=== PATIENT | male | born 1990 | race Caucasian/White ===

== ENCOUNTER 2020-05-26 12:06 | Day surgery (SDC) | payer OTHER ==
[~2020-05-26] VITALS: Ht 175.3 cm; Wt 77.3 kg
[~2020-05-26 12:06] MED LIST: KETOROLAC 30 MG/ML 1ML VIAL IV SCH
[2020-05-26] MEDS ORDERED: NS 1,000 ML IV ONE (13:00)
[2020-05-26 13:13] LABS: BASO % 0.3 % (0.0-1.0); EOS # 0.1 10^3/uL (0.0-0.5); EOS % 0.8 % (0.0-3.0); HEMATOCRIT 44.2 % (42.0-52.0); LYMPH # 2.1 10^3/uL (1.5-5.0); LYMPH % 14.2 % (24.0-44.0); MEAN CORPUSCULAR HEMOGLOBIN 29.9 pg (27.0-33.0); MEAN CORPUSCULAR HGB CONC 33.9 g/dl (32.0-36.5); MONO # 1.4 10^3/uL (0.0-0.8); MONO % 9.2 % (0.0-5.0); NEUTROPHILS # 11.4 10^3/uL (1.5-8.5); PLATELET COUNT, AUTOMATED 250 10^3/uL (150-450); RED BLOOD COUNT 5.02 10^6/uL (4.30-6.10); WHITE BLOOD COUNT 15.1 10^3/uL (4.0-10.0)
[2020-05-26] MEDS ORDERED: ISOVUE-370 76% 100ML VIAL As Ordered ONE (13:29)
[2020-05-26 13:41] LABS: ALBUMIN 3.8 GM/DL (3.2-5.2); BILIRUBIN,DIRECT 0.2 MG/DL (0.0-0.2); BILIRUBIN,TOTAL 0.7 MG/DL (0.2-1.0); TOTAL PROTEIN 7.5 GM/DL (6.4-8.2)
--- NOTE | 2020-05-26 13:45 | REP ---
INDICATION: RLQ pain r/o appendicitis. COMPARISON: None TECHNIQUE: Axial contrast-enhanced images from the lung bases to the pubic symphysis using 100 cc Isovue 370 intravenous contrast material. Coronal and sagittal reformations obtained. This CT examination was performed using the following dose reduction techniques: Automated exposure control, adjustment of mA and/or kv according to the patient's size, and the use of iterative reconstruction technique. FINDINGS: The appendix is fluid-filled and significantly dilated to 22 mm along with a moderate to significant amount of right lower quadrant inflammatory changes including mesenteric stranding and small amount of free fluid. Secondary inflammatory changes to the terminal ileum and cecum are noted. Few scattered reactive right lower quadrant lymph nodes are also identified. No evidence for bowel obstruction, free air to suggest perforation, or drainable periappendiceal collection/abscess. Remainder of the small and large bowel is unremarkable. Liver, spleen, pancreas, gallbladder, bilateral adrenal glands and kidneys are normal. Further evaluation of the pelvis demonstrates normal bladder and age-appropriate prostate/seminal vesicles. Abdominal aorta and vasculature normal. Musculoskeletal structures are intact. Lung bases are clear. IMPRESSION: Acute appendicitis as described above. Moderate amount of surrounding inflammatory changes in the pelvis along with secondary inflammatory changes to the cecum and terminal ileum. No obvious bowel obstruction, perforation or drainable collection/abscess. <Electronically signed by Ministerio Grover > 05/26/20 2030
[2020-05-26] MEDS ORDERED: PIPERACILLIN/TAZOBACTAM SOD 3.375 GM in D5W MINI-BAG PLUS 50 ML IV ONE (14:00)
[2020-05-26] MEDS ORDERED: fentaNYL 100 MCG/2 ML INJECTION (J3010) As Ordered ONE ×2 (16:27→17:12)
[2020-05-26] MEDS ORDERED: MIDAZOLAM INJ 2MG/2ML VIAL (J2250 PER 1MG) As Ordered ONE (16:27)
[2020-05-26] MEDS ORDERED: ONDANSETRON 4MG/2ML VIAL As Ordered ONE (16:28)
[2020-05-26] MEDS ORDERED: LIDOCAINE 2% 100MG/5ML SDV (FOR ANES.) As Ordered ONE (16:28)
[2020-05-26] MEDS ORDERED: ROCURONIUM BROMIDE 50 MG/5 ML VIAL As Ordered ONE ×2 (16:28→17:24)
[2020-05-26] MEDS ORDERED: propofoL 200 MG/20 ML VIAL As Ordered ONE (16:28)
[2020-05-26] MEDS ORDERED: dexameTHASONE 4 MG/ML 1ML VIAL (J1100 PER 1MG) As Ordered ONE (16:28)
[2020-05-26] MEDS ORDERED: BUPIVACAINE HCL 0.25% 30ML VIAL As Ordered ONE (16:30)
[2020-05-26] MEDS ORDERED: LIDOCAINE 1% SDV 30ML VIAL As Ordered ONE (16:30)
--- NOTE | 2020-05-26 16:55 | HPEPDOC ---
General Surgery H&P Date of Admission May 26, 2020 Attending Physician: PHILLIP BLISS MD History and Physical CHIEF COMPLAINT: abdominal pain HISTORY OF PRESENT ILLNESS: Healthy 29 M with a 4 day hsitory of mid to right lower abdoinal pain that has worsened overnight. He denies nausea, vomiting, fevers, chills, diarrhea. No sick contacts or recent travel. In the ED he was found to have leukocytosis of 15,000 and evidence of moderate to markedly distended and inflamed appendix with reactive involvement of the cecum and terminal ileum. ALLERGIES: Please see below. HOME MEDICATIONS: Please see below. PAST MEDICAL HISTORY: 1.denies chronic medical complaints PAST SURGICAL HISTORY: 1. right inguinal hernia repair with mesh. PERSONAL/SOCIAL HISTORY: Denies smoking, alcohol use, or recreational drug use. REVIEW OF SYSTEMS: GENERAL: Denies chills, fatigue, fever, weight gain and weight loss. HEENT: Denies blurred vision and double vision. Denies ear symptoms. Denies hoarseness. NECK: Denies any neck pain. CARDIOVASCULAR: Denies chest pain and palpitations. MUSCULOSKELETAL: Denies arthralgias, back pain and thrombophlebitis. SKIN: Denies rash. NEUROLOGIC: Denies headache, stroke and transient ischemic attack. PSYCHIATRIC: Denies anxiety and depression. ENDOCRINE: Denies thyroid disease. HEMATOLOGY/ONCOLOGY: Denies any bleeding or clotting disorder. HEART: Denies any chest pains, palpitations, paroxysmal dyspnea, orthopnea. PULMONARY: Denies chronic cough, dyspnea and wheezing. GASTROINTESTINAL: See HPI. GENITOURINARY: Denies dysuria, frequency, hematuria and nocturia. ENDOCRINE: Denies polydipsia, polyphagia, polyuria, heat or cold intolerance. INFECTIOUS: Denies any recent upper respiratory tract infection, UTI, need for use of antibiotics. NUTRITION: Reports good appetite. PHYSICAL EXAMINATION: VITAL SIGNS: Please see below. GENERAL APPEARANCE: Patient relatively comfortable, mild discomfort on examination. Awake, alert, oriented. HEENT: Normocephalic, atraumatic. Narcissa palpebral conjunctivae. Anicteric sclerae. Lips moist. CHEST: No chest wall abnormalities. Normal respiratory motion/effort. NECK: Supple. No thyromegaly. No lymphadenopathies. LUNGS: Lung sounds are clear to auscultation bilaterally. No wheezing appreciated. HEART: No chest wall abnormalities. Heart rate and rhythm are regular with no murmurs. ABDOMEN: Minimally distended, slightly rounded abdomen, soft. Tender over right lower and suprapubic area with mild guarding EXTREMITIES: Extremities have no deformities. No edema identified. NEUROLOGICAL: Awake, alert and oriented ANCILLARIES: . LABORATORY DATA: Please see below. MICROBIOLOGY: Please see below. IMAGING: CT abdomen and pelvis IMPRESSION AND PLAN: Acute Appendicitis Clilnically does not look very ill, He does have four days of ongoing symptoms and significant inflammation of the appendix and nearby cecum and terminal ileum with the appendix enlarged up to 2 cms. Good chance of possibly perforated/necrotic/ischemic at this point. I believe he will still benefit from a laparoscopic appendectomy to shorten the course. There is a good possibility that he may need further IV antibiotics for a couple of days depending on how the surrounding tissues are and if it has perforated already or not. Patient is made aware of my suspicion. Vital Signs Vital Signs Date Time Temp Pulse Resp B/P (MAP) Pulse Ox O2 Delivery O2 Flow Rate FiO2 05/26/20 16:14 98.6 90 16 138/80 (99) 100 Room Air Laboratory Data Labs 24H Laboratory Tests 2 05/26/20 12:59: Immature Granulocyte % (Auto) 0.5, Neutrophils (%) (Auto) 75.0H, Lymphocytes (%) (Auto) 14.2L, Monocytes (%) (Auto) 9.2H, Eosinophils (%) (Auto) 0.8, Basophils (%) (Auto) 0.3, Neutrophils # (Auto) 11.4H, Lymphocytes # (Auto) 2.1, Monocytes # (Auto) 1.4H, Eosinophils # (Auto) 0.1, Basophils # (Auto) 0.0, Nucleated Red Blood Cells % (auto) 0.0, Urine Color YELLOW, Urine Appearance CLEAR, Urine pH 6.0, Urine Specific [place] 1.018, Urine Protein NEGATIVE, Urine Glucose (UA) NEGATIVE, Urine Ketones NEGATIVE, Urine Blood 1+H, Urine Nitrite NEGATIVE, Urine Bilirubin NEGATIVE, Urine Urobilinogen 0.2, Urine Leukocyte Esterase NEGATIVE, Urine WBC (Auto) 1, Urine RBC (Auto) 4H, Urine Hyaline Casts (Auto) 0, Urine Bacteria (Auto) NEGATIVE, Urine Squamous Epithelial Cells 0, Urine Mucus (Auto) SMALL, Urine Sperm (Auto) , Total Bilirubin 0.7, Direct Bilirubin 0.2, Aspartate Amino Transf (AST/SGOT) 17, Alanine Aminotransferase (ALT/SGPT) 35, Alkaline Phosphatase 91, Total Protein 7.5, Albumin 3.8, Albumin/Globulin Ratio 1.0, Lipase 66L 05/26/20 13:07: POC Glucose (Misc Panel) 90, POC Sodium (Misc Panel) 136, POC Potassium (Misc Panel) 3.9, POC Chloride (Misc Panel) 98, POC Total CO2 (Misc Panel) 30.0H, POC Blood Urea Nitrogen (Misc Panel 11, POC Ionized Calcium (Misc Panel) 4.8, POC Creatinine (Misc Panel) 0.9, POC Hematocrit (Misc Panel) 44.0 05/26/20 13:54: Coronavirus (COVID-19)(PCR) NEGATIVE CBC/BMP Laboratory Tests 05/26/20 12:59 Home Medications Scheduled Levofloxacin (Levofloxacin) 500 Mg Tablet, 1 TAB PO DAILY Metronidazole (Metronidazole) 500 Mg Tablet, 500 MG PO TID Allergies Coded Allergies: Penicillins (Verified Allergy, Unknown, HIVES, 05/26/20) groin swelling as a child, tolerated zosyn 05/26/20 A-FIB/CHADSVASC A-FIB History Current/History of A-Fib/PAF?: No Current PO Anticoag Therapy: PHILLIP Pro MD May 26, 2020 16:55
[2020-05-26] MEDS ORDERED: ACETAMINOPHEN 1000MG 100ML IV BTL (OFIRMEV) (J0131 PER 10MG) As Ordered ONE (17:25)
[2020-05-26] MEDS ORDERED: KETOROLAC 60MG 2ML VIAL As Ordered ONE (17:25)
[2020-05-26] MEDS ORDERED: SUGAMMADEX SODIUM 500 MG/5 ML VIAL (BRIDION) As Ordered ONE (17:25)
[2020-05-26] MEDS ORDERED: PERCOCET 5MG/325MG TAB PO PRN (19:15)
[2020-05-26] MEDS ORDERED: ACETAMINOPHEN TAB 650MG DOSE (2X325MG) PO PRN (19:15)
[2020-05-26] MEDS ORDERED: ONDANSETRON 4MG/2ML VIAL IV PRN ×2 (19:15→19:45)
[2020-05-26] MEDS ORDERED: oxyCODONE 5MG TAB As Ordered ONE (19:33)
[2020-05-26] MEDS ORDERED: LR 1,000 ML IV SCH (19:45)
[2020-05-26] MEDS ORDERED: oxyCODONE 5MG TAB PO PRN (19:45)
[2020-05-26] MEDS ORDERED: fentaNYL 100 MCG/2 ML INJECTION (J3010) IV PRN (19:45)
[2020-05-26 20:00] VITALS: BP 129/84
[2020-05-26] MEDS: LR 1,000 ML IV SCH (20:22)
[2020-05-26 20:30] VITALS: BP 128/83
[2020-05-26] MEDS: ALVIMOPAN 12 MG CAPSULE (ENTEREG) PO SCH (20:50)
[2020-05-26] MEDS: PIPERACILLIN/TAZOBACTAM SOD 3.375 GM in D5W MINI-BAG PLUS 50 ML IV SCH (20:50)
[2020-05-26 21:30] VITALS: BP 128/84
[2020-05-26 22:30] VITALS: BP 127/83
[2020-05-26 23:30] VITALS: BP 126/85
[2020-05-27 00:35] VITALS: BP 107/61
[2020-05-27] MEDS: PIPERACILLIN/TAZOBACTAM SOD 3.375 GM in D5W MINI-BAG PLUS 50 ML IV SCH ×4 (02:22→20:41)
[2020-05-27] MEDS: LR 1,000 ML IV SCH ×2 (02:23→08:46)
[2020-05-27] MEDS: KETOROLAC 30 MG/ML 1ML VIAL IV SCH ×4 (05:51→23:33)
[2020-05-27 06:00] VITALS: BP 111/65
[2020-05-27] MEDS: ALVIMOPAN 12 MG CAPSULE (ENTEREG) PO SCH ×2 (08:45→20:41)
[2020-05-27 08:46] LABS: BASO % 0.1 % (0.0-1.0); HEMATOCRIT 37.7 % (42.0-52.0); HEMOGLOBIN 13.2 g/dl (13.5-17.5); LYMPH # 1.5 10^3/uL (1.5-5.0); LYMPH % 9.2 % (24.0-44.0); MEAN CORPUSCULAR HEMOGLOBIN 30.8 pg (27.0-33.0); MEAN CORPUSCULAR VOLUME 87.9 fl (80.0-96.0); MONO # 1.3 10^3/uL (0.0-0.8); MONO % 7.8 % (0.0-5.0); NEUTROPHILS # 13.5 10^3/uL (1.5-8.5); NEUTROPHILS % 82.4 % (36.0-66.0); PLATELET COUNT, AUTOMATED 223 10^3/uL (150-450); RED BLOOD COUNT 4.29 10^6/uL (4.30-6.10); WHITE BLOOD COUNT 16.4 10^3/uL (4.0-10.0)
[2020-05-27] MEDS ORDERED: INFLUENZA QUADRIVALENT PF VACCINE 0.5ML SYRINGE IM ONE (09:00)
[2020-05-27 09:16] LABS: BLOOD UREA NITROGEN 7 MG/DL (7-18); CALCIUM LEVEL 8.6 MG/DL (8.5-10.1); CARBON DIOXIDE LEVEL 27 MEQ/L (21-32); CHLORIDE LEVEL 106 MEQ/L (98-107); CREATININE FOR GFR 0.82 MG/DL (0.70-1.30); GLOMERULAR FILTRATION RATE > 60.0 (>60); GLUCOSE, FASTING 147 MG/DL (70-100); POTASSIUM SERUM 4.2 MEQ/L (3.5-5.1); SODIUM LEVEL 140 MEQ/L (136-145)
--- NOTE | 2020-05-27 09:56 | ROOPDOC ---
[facility] Report Of Operation Report of Operation DATE OF PROCEDURE: 05/27/20 PREPROCEDURE DIAGNOSES: acute appendicitis. POSTPROCEDURE DIAGNOSES: acute appendicitis pending path. PROCEDURE: Laparoscopic appendectomy. SURGEON: Phillip Matthews MD SERVICE CORRESPONDENT: MD ANESTHESIA: general anesthesia. ESTIMATED BLOOD LOSS: Approximately 40 mL. COMPLICATIONS: none DRAIN: 19 Mihir drain REMARKS: Patient is a healthy 29-year-old male, active disorder presenting with a 4 day history of periumbilical and right lower quadrant abdominal pain. PROCEDURE NOTE: The appendix is retrocecally located. There is thick fibrotic adhesion between the appendix, the right pelvic sidewall, the urinary bladder and sigmoid colon and terminal ileum which goes beyond a 4 day history of inflammation. This required meticulous dissection to free up the appendix from several structures and avoid injury. DESCRIPTION OF PROCEDURE: Patient has been given a dose of Zosyn perioperatively.Patient was brought to the operating room, placed supine on the table. Sequential compression device placed for DVT prophylaxis. General endotracheal anesthesia started. The abdomen prepped and draped in usual sterile fashion. After a surgical timeout, we began our surgery Entry into the abdomen done through an incision above the umbilicus. Veress needle inserted on a controlled fashion. Intra-abdominal placement confirmed with saline drop technique. CO2 insufflation started to a pressure of 15 mmHg. Using the same incision a 5 mm port was placed under direct vision of laparoscope. Insertion site was inspected for injury and none was found. He was placed on a Trendelenburg position the right side tilted to about 30 to allow for better visualization of the appendix. 2 working ports were placed at the suprapubic area (8 mm) and left lower quadrant area(5 mm) under direct vision. The initial location of the appendix shows this is adhered to the right pelvic sidewall covered with the terminal ileum as it inserts into the cecum and as a slight retrocecal course. This seems to go deep into the pelvis. The bladder is moderately full. The pelvis is mainly filled up with the sigmoid colon as I could see it and my current location. I started by dissecting the pelvic sidewall attachments of the terminal ileum with sharp dissection to free this up and exposed the course of the appendix. As mentioned the appendix seems to be co-: Within the fibrotic chronically formed encapsulation with the appendix being adhered to the bottom of the bladder the sigmoid colon and the right pelvic sidewall. I had to do some strong blunt dissection to free up the appendix. This is markedly enlarged to more than 2 cm. This proved difficult trying to free up and expose the whole course of the appendix. I was able to follow the course of the appendix to the base and started making or dissecting in between the up base of the appendix and the mesoappendix and was able to get around it. I've enlarged is enough that I could follow the course of the appendix to the cecum. The attachment seems to be thickened but otherwise healthy. I upsized my umbilical port to a 12 mm port for stapler and I placed a left upper quadrant 5 mm port for my camera. I then used an [employer] 60 mm stapler with a green load to divide the appendix at its base to its attachment to the cecum. I then continued my dissection of the mesial appendix this from the pelvic sidewall. As I reached the distal end of the appendix I could not pull this away from its attachment to the deep pelvis and the view is obscured by the course of the sigmoid colon and the distention of the bladder. With rather strong pulling the appendix broke off. I then followed the course of the rest of the distal appendix to eventually detach the rest of the left over distal course of the appendix from the bladder and sigmoid colon. I did have some spillage of some purulent fluid that is within t he lumen of the appendix. The appendix was actually taken into 3 pieces. This was all placed in an Endo Catch bag and retrieved through the 12 mm port site. After this I thoroughly irrigated the area and I left a drain in this is coming off the suprapubic port. I closed this old millimeter port with a Berhane Flaherty device using 0 Vicryl in a mattress fashion. The abdomen was then deflated all ports were removed. The rest of the incisions closed with 4-0 Monocryl in subcuticular fashion. Steri-Strips and gauze dressings and Tegaderm then placed as well as a drain dressing. The drain was secured to the skin with 2-0 silk. Patient tolerated the procedure well. He was subsequently awakened and extubated and brought to recovery room in stable condition. PHILLIP MATTHEWS MD May 27, 2020 09:56
[2020-05-27 10:00] VITALS: BP 117/65
--- NOTE | 2020-05-27 11:08 | IPNPDOC ---
Text Note Date of Service The patient was seen on 05/27/20. NOTE Patient underwent laparoscopic appendectomy last night. No events after that, tolerating liquids. He has been afebrile. He reports minimal discomfort at the rLQ area, denies nausea, vomiting. VS reviewed afebrile, nontachycardic Examination: looks very comfortable awake, alert, oriented lungs clear to auscultation abdomen: minimally distended, soft, dressings clean dry, intact (port sites x 4), tonie drain serosanguenous. Impression/plan: acute appendicitis I discussed with him intraoperative results, markedly enlarged appendix greater than 2 cms, fibrotic attachments to the bladder, sigmoid colon, pelvic side wall which seems more chronic than a 4 day appendicitis. He did say that he had some abdominal pain for a couple of days back in march which went away on its own so it could be that he had prior appendicitis. Otherwise he is doing well. We'll keep the drain for monitoring and I will advance his diet. Ambulate to the hallways. Continue with IV abx VS,[place]essae, I+O VS, Vanessae, I+O Laboratory Tests 05/26/20 12:59 05/27/20 08:36 Vital Signs Date Time Temp Pulse Resp B/P (MAP) Pulse Ox O2 Delivery O2 Flow Rate FiO2 05/27/20 06:00 97.5 59 16 111/65 (80) 98 Room Air 05/26/20 19:10 3 I&O- Last 24 Hours up to 6 AM 05/27/20 06:00 Intake Total 5320 ml Output Total 1295 ml Balance 4025 ml PHILLIP BLISS MD May 27, 2020 11:08
[2020-05-27 14:00] VITALS: BP 116/66
[2020-05-27] MEDS: PERCOCET 5MG/325MG TAB PO PRN (20:41)
[2020-05-27 22:00] VITALS: BP 124/65
[2020-05-28] MEDS: PIPERACILLIN/TAZOBACTAM SOD 3.375 GM in D5W MINI-BAG PLUS 50 ML IV SCH ×3 (02:10→14:00)
[2020-05-28] MEDS: PERCOCET 5MG/325MG TAB PO PRN ×2 (03:16→08:35)
[2020-05-28 06:00] VITALS: BP 112/68
[2020-05-28] MEDS: KETOROLAC 30 MG/ML 1ML VIAL IV SCH ×2 (06:00→12:15)
[2020-05-28 06:41] LABS: BASO % 0.3 % (0.0-1.0); EOS # 0.2 10^3/uL (0.0-0.5); EOS % 1.4 % (0.0-3.0); HEMATOCRIT 36.1 % (42.0-52.0); HEMOGLOBIN 12.2 g/dl (13.5-17.5); LYMPH % 16.3 % (24.0-44.0); MEAN CORPUSCULAR HEMOGLOBIN 29.9 pg (27.0-33.0); MEAN CORPUSCULAR HGB CONC 33.8 g/dl (32.0-36.5); MEAN CORPUSCULAR VOLUME 88.5 fl (80.0-96.0); MONO # 1.3 10^3/uL (0.0-0.8); MONO % 10.5 % (0.0-5.0); NEUTROPHILS # 8.8 10^3/uL (1.5-8.5); NEUTROPHILS % 70.8 % (36.0-66.0); PLATELET COUNT, AUTOMATED 214 10^3/uL (150-450); RED BLOOD COUNT 4.08 10^6/uL (4.30-6.10); WHITE BLOOD COUNT 12.5 10^3/uL (4.0-10.0)
[2020-05-28 07:15] LABS: BLOOD UREA NITROGEN 9 MG/DL (7-18); C REACTIVE PROTEIN QUANTITATIV 9.69 MG/DL (0.00-0.30); CALCIUM LEVEL 8.5 MG/DL (8.5-10.1); CARBON DIOXIDE LEVEL 29 MEQ/L (21-32); CHLORIDE LEVEL 107 MEQ/L (98-107); CREATININE FOR GFR 0.91 MG/DL (0.70-1.30); GLOMERULAR FILTRATION RATE > 60.0 (>60); GLUCOSE, FASTING 88 MG/DL (70-100); POTASSIUM SERUM 3.9 MEQ/L (3.5-5.1); SODIUM LEVEL 140 MEQ/L (136-145)
[2020-05-28] MEDS: ALVIMOPAN 12 MG CAPSULE (ENTEREG) PO SCH (08:27)
[2020-05-28] MEDS ORDERED: LEVO500T3 PO (13:21)
[2020-05-28] MEDS ORDERED: METR-265 PO (13:23)
== END 2020-05-28 15:30 | disposition home or self-care (01) ==
LOC: M ED 12:06 → M SDC 17:05 → M MS5PR 20:00 → M SDC 05-28 15:30
PROVIDERS: ATTEND Surgery
DX: K35.890 Other acute appendicitis without perforation or gangrene (principal); Z88.0 Allergy status to penicillin
CPT/HCPCS: 36415; 44970; 74177; 80047; 80048; 80076; 81001; 83690; 85025; 86140; 88304; 90471; 90686; 96361; 96365; 96366; 96375; 96376; 99284; J0131; J1100; J1885; J2250; J2405; J2543; J3010; Q9967; U0002